=== PATIENT | male | born 1995 ===

== ENCOUNTER 2023-09-28 12:00 | Day surgery (SDC) | payer BC, OTHER ==
[2023-09-28] MEDS ORDERED: Ondansetron ODT 4 MG TAB ONE (12:50)
[2023-09-28] MEDS ORDERED: Glucagon 1 MG/ML KIT ONE (12:50)
[2023-09-28 14:01] LABS: ALT (SGPT) 26 U/L (8-55); AST (SGOT) 21 U/L (5-34); Albumin 4.5 g/dL (3.5-5.0); Alkaline Phosphatase 67 U/L (40-110); Anion Gap 14 mmol/L (10-20); BUN (Urea Nitrogen) 12 mg/dL (8.9-20.6); Bilirubin, Total 0.8 mg/dL (0.2-1.2); Calc. Creatinine Clearance 0 mL/min (70-130); Calcium 8.7 mg/dL (7.8-10.44); Carbon Dioxide 23 mmol/L (22-29); Chloride 105 mmol/L (98-107); Estimated GFR 109; Globulin 2.3 g/dL (2.4-3.5); Glucose 204 mg/dL (70-105); Potassium 3.6 mmol/L (3.5-5.1); Protein, Total 6.8 g/dL (6.0-8.3); Sodium 138 mmol/L (136-145)
[2023-09-28 14:03] LABS: #Eosinphils 0.1 10x3/uL (0.0-0.5); #Monocytes 0.6 10x3/uL (0.0-1.1); #Neutrophils 10.1 10x3/uL (1.5-8.4); %Basophils 0.3 % (0.0-2.0); %Eosinophils 0.8 % (0.0-6.0); %Lymphocytes 8.2 % (18.0-47.0); %Monocytes 5.3 % (0.0-10.0); Hematocrit 44.4 % (38.8-50.0); Hemoglobin 15.8 g/dL (13.5-17.5); Mean Corpuscular HGB CONC 35.6 g/dL (32.0-36.0); Mean Corpuscular Hemoglobin 30.3 pg (27.0-33.0); Mean Corpuscular Volume 85.1 fl (81.2-95.1); Mean Platelet Volume 10.9 fl (7.4-10.4); Platelet Count 131 10x3/uL (150-450); RBC Distribution Width 11.9 % (11.5-14.5); Red Blood Cell (RBC) Count 5.22 10x6/uL (4.32-5.72); White Blood Cell (WBC) Count 11.9 10x3/uL (3.5-10.5)
[2023-09-28] MEDS ORDERED: PROPOFOL 100 ML ONE (14:04)
[2023-09-28] MEDS ORDERED: Ondansetron PF 4 MG/2 ML Vial ONE (14:07)
[2023-09-28] MEDS ORDERED: Dexamethasone 4 mg/ml Vial ONE (14:07)
[2023-09-28] MEDS ORDERED: Lidocaine 2% MPF 10 ML AMP (For Epidural Use) ONE (14:07)
[2023-09-28] MEDS ORDERED: SUGAMMADEX SODIUM 200 MG/2 ML VIAL ONE ×2 (14:11→15:42)
[2023-09-28] MEDS ORDERED: Glycopyrrolate 0.2 MG/ML 5 ML SYRINGE ONE (15:15)
[2023-09-28] MEDS ORDERED: Midazolam HCl 2 mg/2 ml Vial ONE (15:15)
[2023-09-28] MEDS ORDERED: Succinylcholine 200 MG/10 ml SYRINGE FS ONE (15:15)
== END 2023-09-28 16:29 | disposition home or self-care (01) ==
LOC: CSHERS 12:00 → CSHSDC 13:50
PROVIDERS: ATTEND Internal Medicine Gastroenterology
PROC: 0DC58ZZ Extirpation of Matter from Esophagus, Via Natural or Artificial Opening Endoscopic (ICD-10-PCS; principal; 2023-09-28)
PROC: 0DB58ZX Excision of Esophagus, Via Natural or Artificial Opening Endoscopic, Diagnostic (ICD-10-PCS; principal; 2023-09-28)
DX: T18.128A Food in esophagus causing other injury, initial encounter (principal); K20.0 Eosinophilic esophagitis; Z88.1 Allergy status to other antibiotic agents; Z88.0 Allergy status to penicillin; W44.F3XA Food entering into or through a natural orifice, initial encounter
CPT/HCPCS: 36415; 71045; 80053; 85025; 88305; J1100; J1611; J2250; J2405; J2704; Q0162